=== PATIENT | female | born 1935 | race Caucasian/White ===

== ENCOUNTER → 2018-08-23 | Outpatient (CLI) | payer OTHER ==
[~2018-08-23] MED LIST: ACTONEL150 MG; BENICAR40 MG; CALCIUM; DUONEB 2.5-0.5 M3 ML; HUMALOG100 UNIT/1; LANTUS; SINGULAIR; SYMBICORT160 MCG/4.; SYNTHROID100 MCG; VITAMIN D400 UNI1
== END ==
LOC: M.ULTRA 12:16
DX: I77.9 Disorder of arteries and arterioles, unspecified (principal); E10.65 Type 1 diabetes mellitus with hyperglycemia; E10.21 Type 1 diabetes mellitus with diabetic nephropathy; R23.0 Cyanosis; R60.9 Edema, unspecified